=== PATIENT | male | born 1985 | race Two or more races ===

== ENCOUNTER 2024-05-29 08:33 | Emergency (ER) | payer BC, MEDICARE ==
[~2024-05-29] VITALS: Ht 188 cm; Wt 81.6 kg
[2024-05-29] MEDS: IV NORMAL SALINE 1000 ML BAG IV ONE (09:06)
[2024-05-29 09:58] LABS: BASOPHILS % (AUTO) 0.2 % (0.0-2.0); EOSINOPHILS # (AUTO) 0.3 K/uL (0.0-0.7); EOSINOPHILS % (AUTO) 4.5 % (0.0-7.0); HEMATOCRIT 43.6 % (36.7-47.1); HEMOGLOBIN 14.7 g/dL (12.5-16.3); LYMPHOCYTES # (AUTO) 1.5 K/uL (0.8-4.8); LYMPHOCYTES % (AUTO) 21.4 % (20.5-51.5); MEAN CORPUSCULAR HEMOGLOBIN 28.8 uug (23.8-33.4); MEAN CORPUSCULAR HGB CONC 34 g/dL (32.5-36.3); MEAN CORPUSCULAR VOLUME 85.6 fL (73.0-96.2); MONOCYTES # (AUTO) 0.3 K/uL (0.1-1.30); MONOCYTES % (AUTO) 3.7 % (0.0-11.0); NEUTROPHILS % (AUTO) 70.2 % (38.5-71.5); PLATELET COUNT (AUTO) 199 K/uL (152-348); RED BLOOD CELL COUNT(AUTO) 5.09 MIL/uL (4.06-5.63); RED CELL DISTRIBUTION WIDTH 13.7 % (12.1-16.2); WHITE BLOOD COUNT (AUTO) 7.2 K/uL (3.6-10.2)
[2024-05-29 09:59] LABS: DIFFERENTIAL COMMENT 1
[2024-05-29 10:00] LABS: CALCIUM 9.6 mg/dL (8.5-10.1); POTASSIUM 4.4 mmol/L (3.5-5.1)
[2024-05-29 10:06] LABS: ALBUMIN 3.9 g/dL (3.4-5.0); BILIRUBIN,TOTAL 0.3 mg/dL (0.2-1.0)
[2024-05-29] MEDS ORDERED: IOHEXOL 300MG/ML 100 ML INFUS..BTL ONE (10:22)
[2024-05-29] MEDS ORDERED: IV NORMAL SALINE 250 ML IV ONE (10:22)
[2024-05-29] MEDS ORDERED: SWABABLE VALVE TRANSFER SET EA MC ONE (10:22)
[2024-05-29 10:55] LABS: *BILIRUBIN,URIN NEGATIVE (NEGATIVE); *BLOOD, URINE NEGATIVE (NEGATIVE); *CLARITY,URINE CLEAR (CLEAR); *COLOR,URINE YELLOW (YELLOW); *KETONES,URINE NEGATIVE (NEGATIVE); *PROTEIN,URINE NEGATIVE (NEGATIVE); *UROBILINOGEN,URINE 0.2 E.U./dl (NORMAL); LEUKOCYTE ESTERASE ,URINE NEGATIVE (NEGATIVE); NITRITE, URINE NEGATIVE (NEGATIVE); UGLUCOSE NEGATIVE (NEGATIVE)
[2024-05-29] MEDS ORDERED: DICY10CA13 PO (11:41)
[2024-05-29 11:56] VITALS: BP 119/77; O2SAT 99
== END 2024-05-29 11:56 | disposition home or self-care (01) ==
LOC: ER 08:33
DX: R10.31 Right lower quadrant pain (principal); Z79.899 Other long term (current) drug therapy
CPT/HCPCS: 99285; 74177; 96360; 80053; 81003; 83690; 85025; 36415; Q9967; J7040; A4606; A4663